=== PATIENT | female | born 1990 | race Caucasian/White ===

== ENCOUNTER 2018-05-07 00:25 | Inpatient (IN) | payer MEDICAID ==
[~2018-05-07] VITALS: Ht 167.6 cm; Wt 65.8 kg
[2018-05-07] MEDS ORDERED: PREN1TAB78 MT (01:20)
[2018-05-07] MEDS ORDERED: DEXT 5%/LR + PITOCIN 20UNITS/L 1,000 ML IV SCH (02:07)
[2018-05-07] MEDS ORDERED: IBUPROFEN 400MG TABLET PO PRN (02:15)
[2018-05-07] MEDS ORDERED: METHYLERGONOVINE MALEATE 0.2 MG/ML IM PRN (02:15)
[2018-05-07] MEDS ORDERED: IBUPROFEN 800MG TABLET PO PRN (02:15)
[2018-05-07] MEDS ORDERED: BENZOCAINE/LANOLIN/ALOE VERA SPRAY TOP PRN (02:15)
[2018-05-07 02:41] LABS: BASOPHILS % 0.3 % (0.0-2.0); EOSINOPHILS % 0.2 % (0.0-5.0); HEMOGLOBIN. 11.2 g/dL (12.0-16.0); LYMPHOCYTES % 10.1 % (20.0-50.0); MEAN CORPUSCULAR HEMOGLOBIN 29.5 pg (28.0-32.0); MEAN CORPUSCULAR VOLUME 89.5 fL (81.0-99.0); MEAN PLATELET VOLUME 8.9 fl (7.4-10.4); MONOCYTES % 8.4 % (2.0-8.0); PLATELET 221 x1000/uL (130-400); RED CELL DISTRIBUTION WIDTH 14.2 % (11.6-14.6)
[2018-05-07 02:47] LABS: INR 0.9; PROTHROMBIN TIME 9.4 sec (9.1-11.1)
[2018-05-07 02:48] LABS: CHLORIDE 109 mEq/L (98-107)
[2018-05-07 03:20] LABS: HEPATITIS B SURFACE ANTIGEN NEGATIVE
[2018-05-07 03:30] VITALS: BP 128/76
[2018-05-07 04:10] VITALS: BP 109/58
[2018-05-07 06:24] LABS: *BARBITURATES SCREEN URINE NEGATIVE (NEGATIVE)
[2018-05-07 06:25] LABS: *BENZODIAZEPINES SCREEN URINE NEGATIVE (NEGATIVE); *COCAINE SCREEN URINE NEGATIVE (NEGATIVE); CANNABINOID URINE SCREEN NEGATIVE (NEGATIVE); METHADONE URINE SCREEN NEGATIVE (NEGATIVE); OPIATES URINE SCREEN NEGATIVE (NEGATIVE); PHENCYCLIDINE URINE SCREEN NEGATIVE (NEGATIVE)
[2018-05-07 06:26] LABS: *AMPHETAMINES SCREEN URINE NEGATIVE (NEGATIVE)
[2018-05-07 08:00] VITALS: BP 97/57
[2018-05-07] MEDS ORDERED: INFLUENZA VIRUS VACCINE(AFLURIA) 0.5ML SYR IM ONE (10:00)
[2018-05-07 16:00] VITALS: BP 97/56
[2018-05-07 19:25] VITALS: BP 107/64
[2018-05-07 23:45] VITALS: BP 108/65
[2018-05-08 08:00] VITALS: BP 98/57
[2018-05-08 15:21] LABS: CLARITY URINE TURBID (CLEAR); COLOR URINE YELLOW (YELLOW); KETONES URINE TRACE (NEGATIVE); LEUKOCYTE ESTERASE URINE NEGATIVE (NEGATIVE); NITRITE URINE NEGATIVE (NEGATIVE); OCCULT BLOOD URINE 3+ (NEGATIVE); PROTEIN URINE 1+ (NEGATIVE); SPECIFIC GRAVITY URINE 1.027 (1.005-1.030)
== END 2018-05-08 15:00 | disposition home or self-care (01) | DRG 561 ==
LOC: 8 EST LDRP 00:25 → OBSVTOIN 00:25 → 8EST 03:58
PROVIDERS: ADMIT Obstetrics & Gynecology; ATTEND Obstetrics & Gynecology
DX: Z39.0 Encounter for care and examination of mother immediately after delivery (principal)
CPT/HCPCS: 36415; 80305; 86592; 86703; 86762; 86850; 86900; 87340; 99281; J2590

== ENCOUNTER 2019-06-07 11:59 | Emergency (ER) | payer MEDICAID ==
[~2019-06-07] VITALS: Ht 165.1 cm; Wt 55.0 kg
[~2019-06-07 11:59] MED LIST: PREN1TAB78 MT
[2019-06-07 14:26] LABS: CLARITY URINE CLOUDY (CLEAR); COLOR URINE YELLOW (YELLOW); KETONES URINE 1+ (NEGATIVE); LEUKOCYTE ESTERASE URINE 3+ (NEGATIVE); NITRITE URINE POSITIVE (NEGATIVE); OCCULT BLOOD URINE 1+ (NEGATIVE); PROTEIN URINE 1+ (NEGATIVE); SPECIFIC GRAVITY URINE 1.016 (1.005-1.030); UROBILINOGEN URINE 0.2 E.U./dL (0.2-1.0)
[2019-06-07] MEDS ORDERED: IBUPROFEN 600MG TABLET PO ONE (14:30)
[2019-06-07 15:11] VITALS: BP 139/78
== END 2019-06-07 15:12 | disposition home or self-care (01) ==
LOC: ER 11:59
DX: N30.00 Acute cystitis without hematuria (principal); Z86.73 Personal history of transient ischemic attack (TIA), and cerebral infarction without residual deficits
CPT/HCPCS: 81003; 81025; 87077; 87186; 99283